=== PATIENT | female | born 1990 | race Caucasian/White ===

== ENCOUNTER 2016-12-21 21:25 | Emergency (ER) | payer MEDICAID ==
[~2016-12-21 21:25] MED LIST: ADVIL200 M1 PO; ADVIL200 M3 PO; ANTI-FUNGAL15 GM TP; BACTRIM DS TABL1 TAB PO; BACTRIM DS1 TAB PO; CEFTIN500 M1 PO; CIPRO500 M2 PO; CLEOCIN HCL300 MG PO; CLINDAMYCIN HC300 M1 PO; COLACE100 M1 PO; FLAGYL500 M1 PO; FLAGYL500 MG PO; GUIATUSS AC SY120 ML PO; IBUPROFEN600 M1 PO; IBUPROFEN800 M1 PO; KEFLEX500 M2 PO; MACROBID 100 M100 MG PO; NO HOME MEDICATION XX; NO MEDICATION; NO MEDS; NORCO 7.5-3251 EACH PO; PENICILLIN V P500 M1 PO; PRENATAL VITAMI1 TAB PO; PRENATAL1 EACH PO; PRENATAL1 TAB PO; ROBITUSSIN-DM5 M1 PO; TYLENOL WITH C1 EACH PO; TYLENOL500 MG PO; VISTARIL50 M1 PO; ZITHROMAX250 MG PO; ZITHROMAX250MG Z-PAK PO; ZOFRAN ODT4 MG/UDTAB PO
[2016-12-21] MEDS ORDERED: NO HOME MEDICATION XX (22:25)
[2016-12-21] MEDS ORDERED: POLYTRIM EYE DR10 M1 OP (22:33)
== END 2016-12-21 23:00 ==
LOC: EDMED 21:25
DX: H10.32 Unspecified acute conjunctivitis, left eye (principal)